=== PATIENT | female | born 1970 | race Caucasian/White ===

== ENCOUNTER 2021-03-23 08:52 | Day surgery (SDC) | payer OTHER ==
[~2021-03-23] VITALS: Ht 157.5 cm; Wt 104.0 kg
[~2021-03-23 08:52] MED LIST: CENTRUM1 TAB PO; LEVOTHYROXINE0.1 MG PO; MASON NATURAL2000 IU PO; MIDRIN; NEXIUM 40MG40 MG PO; NORCO 325 MG-51 TAB PO; PAXIL 20MG20 MG PO; PRINIVIL10 MG PO; PYRIDIUM200 MG PO; UROCIT-K 1010 MEQ PO; VYTORIN 10 MG-21 TAB PO
[2021-03-23] MEDS ORDERED: FISH OIL 1000MG1 CAP PO (10:22)
[2021-03-23] MEDS ORDERED: ZYLOPRIM 300MG300 MG PO (10:22)
[2021-03-23] MEDS ORDERED: CRANBERRY500 M3 PO (10:22)
[2021-03-23] MEDS ORDERED: CRESTOR20 MG PO (10:23)
[2021-03-23] MEDS ORDERED: SYNTHROID0.175 MG PO (10:25)
[2021-03-23] MEDS ORDERED: SYNTHROID0.2 MG/TAB PO (10:25)
[2021-03-23 10:26] VITALS: BP 130/69; PULSE 77; TEMP 98.4
[2021-03-23] MEDS ORDERED: NORCO 325 MG-51 TAB PO (11:22)
[2021-03-23 11:23] VITALS: BP 107/54; PULSE 71; TEMP 98.6
--- NOTE | 2021-03-23 11:23 | NUR ---
Pt returns to [facility] from the OR, drowsy but responds well, report received from SURGICAL DENTAL ASSISTANT and RN. Pt denies pain or nausea and just wants to sleep. O2/2L/NC applied, pt uses CPAP at night for sleep apnea. Call light in reach, side rails up x2, VSS.
[2021-03-23 11:40] VITALS: BP 107/61; PULSE 64
--- NOTE | 2021-03-23 11:40 | NUR ---
Pt resting, denies needs, Call light in reach.
[2021-03-23 11:55] VITALS: BP 117/70; PULSE 61
--- NOTE | 2021-03-23 11:55 | NUR ---
Pt awake and alert now, O2 removed and sats >94%. Reports right flank pain 6/10 will medicate per orders. VSS. Pt given a muffin and coffee. Call light in reach.
[2021-03-23 12:10] VITALS: PULSE 71
--- NOTE | 2021-03-23 12:15 | NUR ---
Pt doing well and ready to go home, up to the bathroom and voids without difficulty, urine pink tinged. VSS. Discharge instructions provided and pt notifies and is taken out via wheelchair at 1235 and left in care of her .
== END 2021-03-23 12:35 | disposition home or self-care (01) ==
LOC: SDCO 08:52
DX: N20.0 Calculus of kidney (principal); N39.3 Stress incontinence (female) (male); N39.0 Urinary tract infection, site not specified; I10 Essential (primary) hypertension; E78.5 Hyperlipidemia, unspecified; K21.9 Gastro-esophageal reflux disease without esophagitis; G47.33 Obstructive sleep apnea (adult) (pediatric); M19.071 Primary osteoarthritis, right ankle and foot; E78.00 Pure hypercholesterolemia, unspecified; F32.A Depression, unspecified; F41.9 Anxiety disorder, unspecified; Z79.899 Other long term (current) drug therapy; Z99.89 Dependence on other enabling machines and devices; Z90.710 Acquired absence of both cervix and uterus; Z90.49 Acquired absence of other specified parts of digestive tract; Z79.890 Hormone replacement therapy
CPT/HCPCS: J0690; J2704; J3010; J7120